=== PATIENT | female | born 1945 | race Caucasian/White ===

== ENCOUNTER 2018-10-11 18:48 | Inpatient (IN) | payer OTHER ==
[~2018-10-11] VITALS: Ht 149.9 cm; Wt 66.6 kg
[~2018-10-11 18:48] MED LIST: AMLO10TA7 PO; ASPI-555 PO; CLOP75TA32 PO; MAGN400T40 PO; METF100P3 MC; METO100T14 PO; MULT-1258 PO; PRAS10TA9 PO; PRAV40TA3 PO; TELM80TA10 PO
[2018-10-11 19:49] LABS: BASOPHILS % (AUTO) 2.6 % (0.0-5.0); EOSINOPHILS % (AUTO) 6.3 % (0.0-8.0); LYMPHOCYTES % (AUTO) 23.1 % (21.0-51.0); MEAN CORPUSCULAR HEMOGLOBIN 18.8 pg (27.0-33.0); MEAN CORPUSCULAR HGB CONC 29.2 g/dL (32.0-36.0); MEAN CORPUSCULAR VOLUME 64.5 fL (79-99); MONOCYTES % (AUTO) 11.3 % (3.0-13.0); NEUTROPHILS % (AUTO) 56.7 % (40.0-77.0); NUCLEATED RED BLOOD CELLS 0.7 % (0.0-0.19); PLATELET COUNT (AUTO) 331 K/uL (130-400); RED BLOOD CELL COUNT(AUTO) 2.63 MIL/uL (4.00-5.50); RED CELL DISTRIBUTION WIDTH 24.5 % (11.0-15.5); WHITE BLOOD COUNT (AUTO) 5.4 K/uL (4.8-10.8)
[2018-10-11 20:04] LABS: CREATININE 1.3 mg/dL (0.5-1.5)
[2018-10-11 20:05] LABS: INR 1.11 (0.85-1.15); PARTIAL THROMBOPLASTIN TIME 22.5 SEC (26.3-35.5); PROTHROMBIN TIME 11.6 SEC (9.6-11.6)
[2018-10-11 20:06] LABS: RETICULOCYTE % (AUTO) 3.09 % (0.42-2.23)
[2018-10-11 20:07] LABS: B-TYPE NATRIURETIC PEPTIDE 867 pg/mL (0-100)
[2018-10-11 20:13] LABS: ALBUMIN 3.5 g/dL (3.5-5.0); BILIRUBIN,TOTAL 0.4 mg/dL (0.2-1.0); TOTAL PROTEIN, SERUM 7.3 g/dL (6.0-8.3)
[2018-10-11 20:22] LABS: FERRITIN 9 ng/mL (15-150); IRON, SERUM 17 mcg/dL (50-170)
[2018-10-11] MEDS ORDERED: SODIUM CHLORIDE 0.9% 100 ML IV ONE (21:48)
[2018-10-11] MEDS ORDERED: DIPHENHYDRAMINE HCL 25 MG CAPSULE ONE (23:57)
[2018-10-12] MEDS ORDERED: FUROSEMIDE 10 MG/ML 2ML VIAL ONE (02:32)
[2018-10-12] MEDS ORDERED: DIPHENHYDRAMINE HCL 25 MG CAPSULE ONE (03:03)
[2018-10-12] MEDS ORDERED: SODIUM CHLORIDE 0.9% 1000ML 1,000 ML IV ONE (03:12)
[2018-10-12 09:09] LABS: APPEARANCE,URINE Clear (CLEAR); BILIRUBIN,URINE Negative (NEGATIVE); COLOR,URINE Yellow (YELLOW); GLUCOSE, URINE (UA) Negative (NEGATIVE); KETONES,URINE Negative (NEGATIVE); LEUKOCYTE ESTERASE ,URINE Trace (NEGATIVE); NITRATE,URINE Negative (NEGATIVE); OCCULT BLOOD,URINE Trace (NEGATIVE); PH,URINE 7.5 (5.0-8.0); PROTEIN,URINE Negative (NEGATIVE); UROBILINOGEN,URINE 0.2 mg/dL (0.2-1.0)
[2018-10-12 09:41] LABS: BACTERIA,URINE Few /HPF (None Seen); RBC,URINE 0-1 /HPF (0-1); SQUAMOUS EPITHELIAL CELL,UR 0-2 /HPF (0-2); WBC,URINE 0-1 /HPF (0-1)
[2018-10-12 10:31] LABS: HEMATOCRIT 24.2 % (36-48); MEAN CORPUSCULAR HEMOGLOBIN 22.6 pg (27.0-33.0); MEAN CORPUSCULAR HGB CONC 32.3 g/dL (32.0-36.0); MEAN CORPUSCULAR VOLUME 70.2 fL (79-99); NUCLEATED RED BLOOD CELLS 0.8 % (0.0-0.19); PLATELET COUNT (AUTO) 257 K/uL (130-400); RED BLOOD CELL COUNT(AUTO) 3.44 MIL/uL (4.00-5.50); RED CELL DISTRIBUTION WIDTH 25.8 % (11.0-15.5)
[2018-10-12] MEDS ORDERED: COMPOUND IV MISC 1 EACH IVSOLN MISC PRN (15:15)
[2018-10-12 16:30] VITALS: BP 112/51
[2018-10-12 19:12] VITALS: BP 158/72
[2018-10-12] MEDS ORDERED: METO25TA6 PO (19:14)
[2018-10-12] MEDS ORDERED: METO50TA18 PO (19:14)
[2018-10-12] MEDS: PANTOPRAZOLE 40 MG/VIAL IVP SCH (23:31)
[2018-10-13 00:15] VITALS: BP 165/84
[2018-10-13 04:20] VITALS: BP 156/67
[2018-10-13 05:33] LABS: MEAN CORPUSCULAR HEMOGLOBIN 21.7 pg (27.0-33.0); MEAN CORPUSCULAR VOLUME 69.9 fL (79-99); NUCLEATED RED BLOOD CELLS 1.2 % (0.0-0.19); PLATELET COUNT (AUTO) 260 K/uL (130-400); RED BLOOD CELL COUNT(AUTO) 3.86 MIL/uL (4.00-5.50); RED CELL DISTRIBUTION WIDTH 26.4 % (11.0-15.5); RETICULOCYTE % (AUTO) 2.87 % (0.42-2.23); WHITE BLOOD COUNT (AUTO) 4.8 K/uL (4.8-10.8)
[2018-10-13 05:40] LABS: INR 1.08 (0.85-1.15); PARTIAL THROMBOPLASTIN TIME 22.9 SEC (26.3-35.5); PROTHROMBIN TIME 11.3 SEC (9.6-11.6)
[2018-10-13 05:53] LABS: % IRON SATURATION 4.1 % (22-44)
[2018-10-13 05:59] LABS: ALBUMIN 3.4 g/dL (3.5-5.0); BILIRUBIN,TOTAL 1.6 mg/dL (0.2-1.0); MAGNESIUM 1.7 mg/dL (1.80-2.40); POTASSIUM 4.3 mmol/L (3.5-5.1); THYROID STIMULATING HORMONE 4.79 uIU/mL (0.36-3.74); TOTAL PROTEIN, SERUM 7.1 g/dL (6.0-8.3)
[2018-10-13 08:07] VITALS: BP 161/67
[2018-10-13] MEDS ORDERED: IRON SUCROSE COMPLEX 100 MG in SODIUM CHLORIDE 0.9% 50 ML IV SCH (09:00)
[2018-10-13] MEDS: PANTOPRAZOLE 40 MG/VIAL IVP SCH (09:12)
[2018-10-13 09:56] LABS: HEMATOCRIT 26.5 % (36-48)
[2018-10-13 11:29] VITALS: BP 173/77
--- NOTE | 2018-10-13 14:44 | NUR ---
DCP CM met with pt discussed dc plans. Pt is independent prior to admission, lives at home alone, sister next door. Pt has oxygen she uses prn, nebulizer she uses prn, cane, walker, and wheelchair. Denies any other services/equipments. Pt feels safe to go back home, sister able to assist with transportation and needs as necessary. DC plan to home once stable. CM to cont to follow up. Addendum: 10/13/18 at 1445 by HERNAN KAN LVN CM Amended: Links added.
--- NOTE | 2018-10-13 16:35 | NUR ---
PT D/C UPDATE Pt d/c home safely, admitted with hgb of 5.0. 2 units PRBC transfused on this visit, hgb up 7.8 this morning, no intervention from gastroenterology consulted on this visit, pt to follow up with Dr. Otero in office, appointment made for pt upon d/c, pt also consulted with digital media specialist, Dr. Ordonez, No intervention on this visit, pt to follow up in office in two weeks, appointment already made for pt upon d/c, prescription by digital media specialist given to pt, instructions on medications explained on d/c paper work, pt to stop aspirin and Plavix until appointment with PCP, pt verbalized understanding of d/c instructions and follow up appointments, pt accompanied by sister sheldon, transportation provided by sister, PIV removed safely, no complication noted, pt finally taken down in w/c by [employer].
== END 2018-10-13 17:00 | disposition home or self-care (01) | DRG 812 ==
LOC: EDH 18:48 → EDHIP 22:57 → 3BH 10-12 16:30
PROVIDERS: ADMIT Internal Medicine Critical Care Medicine; ATTEND Internal Medicine Critical Care Medicine
PROC: 30233N1 Transfusion of Nonautologous Red Blood Cells into Peripheral Vein, Percutaneous Approach (ICD-10-PCS; principal; 2018-10-12)
DX: D50.9 Iron deficiency anemia, unspecified (principal); D47.3 Essential (hemorrhagic) thrombocythemia; E11.9 Type 2 diabetes mellitus without complications; E78.5 Hyperlipidemia, unspecified; I10 Essential (primary) hypertension; Z79.02 Long term (current) use of antithrombotics/antiplatelets; J44.9 Chronic obstructive pulmonary disease, unspecified; Z79.82 Long term (current) use of aspirin; Z87.891 Personal history of nicotine dependence; Z90.710 Acquired absence of both cervix and uterus; Z88.2 Allergy status to sulfonamides
CPT/HCPCS: 36415; 71045; 80053; 81001; 82270; 82550; 82607; 82728; 82746; 82948; 83010; 83540; 83550; 83735; 83880; 84100; 84443; 84484; 85014; 85018; 85025; 85027; 85045; 85060; 85610; 85730; 86850; 86900; 86901; 86922; 93005; C9113; G0378; J1756; J1940; J7030; P9016; Q0163